=== PATIENT | male | born 1975 | race African-American/Black ===

== ENCOUNTER → 2016-11-04 | Outpatient (CLI) | payer OTHER ==
[~2016-11-04] MED LIST: AL-MAG HYDROX-S30 M1 PO; AMLODIPINE BESY10 MG PO; BACTRIM 400-801 TA1 PO; CARAFATE1 GM PO; CARVEDILOL25 MG PO; CLEOCIN PO; FLAGYL PO; GABAPENTIN600 MG PO; GLUCOMETER ELIT1 KIT MC; GLUCOPHAGE XR500 MG PO; HYDROCODON-ACE1 EAC9 PO; KEFLEX500 M1 PO; LANTUS100 U/ML SQ; LANTUS100 U/ML SUBQ; LEVAQUIN PO; LISINOPRIL20 MG PO; LORTAB 7.5-5001 TAB PO; METFORMIN HCL500 M1 PO; METFORMIN PO; MOBIC PO; NEURONTIN600 MG PO; PROTONIX PO; TRAMADOL HCL50 M1 PO; TYLENOL #3 PO; ULTRAM PO; ZOFRAN ODT4 MG PO; [UNRECOGNIZED DRUG - OTHER]; [UNRECOGNIZED DRUG - OTHER]; [UNRECOGNIZED DRUG - OTHER] I; [UNRECOGNIZED DRUG - OTHER] I; [UNRECOGNIZED DRUG - SUPPLY] MC
[2016-11-04 15:36] LABS: URINE APPEARANCE CLOUDY; URINE BILIRUBIN NEG (NEG); URINE BLOOD 1+ (NEG); URINE COLOR YELLOW; URINE GLUCOSE NEG (NEG); URINE KETONE TRACE (NEG); URINE LEUKOCYTE ESTERASE 3+ (NEG); URINE NITRATE NEG (NEG); URINE PH 6.5 (5-8); URINE PROTEIN 1+ (NEG); URINE SPECIFIC GRAVITY 1.023 (1.003-1.035)
[2016-11-04 15:37] LABS: BASOPHIL# 0.1 X10e3 (0-0.3); BASOPHIL% 1.2 % (0-2.5); EOSINOPHIL# 0.1 X10e3 (0-0.7); HEMATOCRIT 36.8 % (38.0-50.0); HEMOGLOBIN 11.9 gm/dL (13.0-16.0); LYMPHOCYTE# 4.2 X10e3 (1.0-3.5); MEAN CELL VOLUME 85.5 FL (83-96); MEAN CORPUSCULAR HEMOGLOBIN 27.6 PG (28-34); MEAN CORPUSCULAR HGB CONC 32.3 g/dL (30-36); MEAN PLATELET VOLUME 7.8 FL (6.5-11.5); MONOCYTE# 1.1 X10e3 (0-1.0); MONOCYTE% 8.9 % (3.0-12.0); NEUTROPHIL# 6.4 X10e3 (1.5-7.1); NEUTROPHIL% 53.9 % (40-75); PLATELET COUNT 302 X10e3 (140-420); RED CELL DISTRIBUTION WIDTH 13.9 % (11.0-15.5); WHITE BLOOD COUNT 11.9 X10e3 (4.0-10.5)
[2016-11-04 15:38] LABS: DIFF IND NO; URINE BACTERIA AUWI 1+ (NEGATIVE); URINE SQUAMOUS EPITHELIAL CELL OCC /[HPF]; UWBCS1 AUWI INNUM (0-5)
[2016-11-04 15:50] LABS: BUN/CREATININE RATIO 14.61; CALCIUM SERUM 9.5 mg/dL (8.4-10.2); CREATININE SERUM 1.3 mg/dL (0.6-1.4); GLOM FILT RATE Estimated 78.6 mL/min (>60); POTASSIUM 4.5 mmol/L (3.5-5.1)
== END | disposition home or self-care (01) ==
LOC: CLAB 15:05
PROVIDERS: Internal Medicine Nephrology
DX: E11.22 Type 2 diabetes mellitus with diabetic chronic kidney disease (principal); N18.2 Chronic kidney disease, stage 2 (mild)
CPT/HCPCS: 36415; 80048; 81003; 82570; 85025

== ENCOUNTER 2016-12-20 14:25 | Emergency (ER) | payer OTHER ==
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
[2016-12-20 16:18] LABS: BASOPHIL# 0.1 X10e3 (0-0.3); BASOPHIL% 0.4 % (0-2.5); DIFF IND YES; HEMATOCRIT 38.6 % (38.0-50.0); HEMOGLOBIN 12.7 gm/dL (13.0-16.0); LYMPHOCYTE% 6.2 % (17.0-45.0); MEAN CELL VOLUME 84.7 FL (83-96); MEAN PLATELET VOLUME 8.6 FL (6.5-11.5); MONOCYTE# 1.3 X10e3 (0-1.0); MONOCYTE% 7.8 % (3.0-12.0); NEUTROPHIL# 13.9 X10e3 (1.5-7.1); NEUTROPHIL% 85.6 % (40-75); PLATELET COUNT 245 X10e3 (140-420); RED BLOOD COUNT 4.55 X10e (3.90-5.60); RED CELL DISTRIBUTION WIDTH 13.3 % (11.0-15.5); WHITE BLOOD COUNT 16.2 X10e3 (4.0-10.5)
[2016-12-20 16:57] LABS: ANISOCYTOSIS SL; PLATELET ESTIMATE NORMAL (NORMAL)
[2016-12-20 17:28] LABS: ALBUMIN SERUM 4.2 g/dL (3.5-5.0); BILIRUBIN, DIRECT 0.2 mg/dL (0.0-0.2); BILIRUBIN,INDIRECT 1.3 mg/dL (0.0-0.9); BILIRUBIN,TOTAL 1.5 mg/dL (0.2-2.0); BUN/CREATININE RATIO 14.28; CALCIUM SERUM 9.3 mg/dL (8.4-10.2); CREATININE SERUM 1.4 mg/dL (0.6-1.4); GLOM FILT RATE Estimated 71.8 mL/min (>60); POTASSIUM 3.9 mmol/L (3.5-5.1); PROTEIN TOTAL SERUM 7.8 g/dL (6.0-8.3)
== END 2016-12-20 21:58 | disposition home or self-care (01) ==
LOC: CED 14:25
PROVIDERS: Emergency Medicine
DX: F19.10 Other psychoactive substance abuse, uncomplicated (principal); R10.84 Generalized abdominal pain; R11.2 Nausea with vomiting, unspecified; R19.7 Diarrhea, unspecified; F17.210 Nicotine dependence, cigarettes, uncomplicated; Z98.890 Other specified postprocedural states; Z88.1 Allergy status to other antibiotic agents
CPT/HCPCS: 36415; 74177; 80048; 80076; 82150; 83690; 85025; 96361; 96374; 96375; 99284; J1885; J2270; J2405; J2765; Q9967